=== PATIENT | female | born 1950 | race Caucasian/White ===

== ENCOUNTER 2017-12-13 11:43 | Emergency (ER) | payer OTHER ==
[~2017-12-13 11:43] MED LIST: CARDIZEM CD240 M1 PO; LOSARTAN POTASS50 M1 PO; MAGNESIUM400 M1 PO; OMEGA-31000 M1 PO; OMEPRAZOLE40 M1 PO; PAZEO2.5 ML OU; PRADAXA150 M1 PO
[2017-12-13 13:33] LABS: ABSOLUTE BASOPHIL COUNT 0 /CUMM (0.0-0.2); ABSOLUTE EOSINOPHIL COUNT 0.2 /CUMM (0.0-0.7); ABSOLUTE GRANULOCYTE CT 3.6 /CUMM (1.4-6.5); ABSOLUTE MONOCYTE COUNT 0.3 /CUMM (0.10-0.60); BASOPHIL % 0.4 % (0.0-2.0); GRANULOCYTE % 57.4 % (42.2-75.2); HEMATOCRIT 43.9 % (37-47); MEAN CORPUSCULAR HGB 31.9 PG (27.0-31.0); MEAN CORPUSCULAR VOLUME 93.8 FL (81.0-99.0); MEAN PLATELET VOLUME 7.1 FL (7.4-10.4); PLATELET COUNT 307 /CUMM (130-400); RBC DISTRIBUTION WIDTH 13.7 % (11.5-14.5); RED BLOOD CELL CT 4.69 /CUMM (4.20-5.40); WHITE BLOOD CELL COUNT 6.2 /CUMM (4.8-10.8)
[2017-12-13 13:40] LABS: PT 11.7 SEC (9.4-12.5); PTT 36 SEC (25-37)
--- NOTE | 2017-12-13 14:50 | RADIOLOGY REPORT ---
EXAMINATION: XR CHEST CLINICAL INFORMATION: Hemoptysis. COMPARISON: 10/06/2017, 07/03/2015. TECHNIQUE: 2 views of the chest were obtained. FINDINGS: Stable cardiac and mediastinal silhouette. Stable mild elevation of the right hemidiaphragm. Unchanged appearance of the dense, probably calcified, nodules in bilateral lungs, when compared to 07/03/2015. 1.02 cm nodule in the right mid lung, 0.5 cm nodule left upper, 0.9 cm nodule left lower lung. No evidence of focal consolidation, effusion, edema or pneumothorax. Degenerative changes in the spine. IMPRESSION: No evidence of acute process. Multiple nodules in bilateral lungs, unchanged in size from 07/03/2015, appearance suggesting calcified nodules. No focal consolidation is seen. Etiology of the patient's hemoptysis has not been determined. Further evaluation with CT chest as clinically warranted.
--- NOTE | 2017-12-13 14:57 | ED GENERAL ADULT ---
History of Present Illness General Chief Complaint: General Adult Stated Complaint: SIB DR TOURE BLOODY MOUTH +THINNERS Source: patient, family, old records Exam Limitations: no limitations Vital Signs & Intake/Output Vital Signs & Intake/Output Vital Signs Date Time Temp Pulse Resp B/P B/P Pulse O2 O2 Flow FiO2 Mean Ox Delivery Rate 12/13 1530 98.8 84 18 165/88 97 Room Air Room Air 12/13 1205 99.6 86 20 160/87 95 Room Air Allergies Coded Allergies: Sulfa (Sulfonamide Antibiotics) (RASH, ITCHY EYES 10/06/17) Tetracyclines (RASH 10/06/17) amoxicillin (From AUGMENTIN) (RASH 10/06/17) ciprofloxacin (RASH 10/06/17) clavulanic acid (From AUGMENTIN) (RASH 10/06/17) erythromycin base (RASH 10/06/17) Reconcile Medications Dabigatran Etexilate Mesylate (Pradaxa 150 MG) 150 MG CAPSULE 1 CAP PO BID blood thinner Diltiazem HCl (Cardizem Cd) 240 MG CAP.ER.24H 1 CAP PO DAILY afib Losartan Potassium 50 MG TABLET 1 TAB PO DAILY HEART/BP (Reported) Magnesium Oxide (Magnesium) 400 MG CAPSULE 1 CAP PO DAILY SUPPLEMENT ( Reported) [place]-3 Fatty Acids ([place]-3) (Unknown Strength) CAPSULE 1 TAB PO DAILY SUPPLEMENT (Reported) Omeprazole 40 MG CAPSULE. 1 CAP PO PRN GI (Reported) Core Measure Meds Pre-Hospital Pradaxa Triage Note: SIB DR TOURE FOR BLOODY MOUTH THIS MORNING WHILE AWAKENING. STATES SHE IS ON PRADAXA AND WAS TOLD NOT TO TAKE IT TODAY. NO ACTIVE BLEEDING NOW Triage Nurses Notes Reviewed? yes Onset: Morning Duration: hour(s):, better, gone now Timing: recent history Injury Environment: home Severity: mild, moderate Modifying Factors: Improves With: rest. LMP (ages 10-50): post menopausal : No Patient currently breastfeeds: No HPI: Prior to admission patient awoke with blood in her mouth cheek and on the pillow. She denies fever chills nausea vomiting diarrhea abdominal pain chest pain shortness of breath headache dysuria rash change in bowels. She notes lately she has had lenora taste in the back of her mouth. Past History Travel History Traveled to [place] past 21 day No Medical History Any Pertinent Medical History? see below for history Neurological: NONE EENT: [place] SEASONAL ALLERGIES Cardiovascular: AFIB, hypertension, hyperlipidemia Respiratory: SLEEP APNEA Gastrointestinal: GERD, irritable bowel syndrome, GASTRITIS Hepatic: FATTY LIVER Renal: NONE Musculoskeletal: osteoarthritis Psychiatric: NONE Endocrine: diabetes Blood Disorders: NONE Cancer(s): NONE History of MRSA: No History of VRE: No History of CDIFF: No Influenza Vaccine: 06/18/17 Surgical History Surgical History: non-contributory Psychosocial History What is your primary language Portuguese Tobacco Use: Quit >30 days ago ETOH Use: occasional use Illicit Drug Use: denies illicit drug use Family History Hx Contributory? No Review of Systems Review of Systems Constitutional: Reports: no symptoms. EENTM: Reports: no symptoms. Respiratory: Reports: no symptoms. Cardiovascular: Reports: no symptoms. GI: Reports: see HPI. Genitourinary: Reports: no symptoms. Musculoskeletal: Reports: no symptoms. Skin: Reports: no symptoms. Neurological/Psychological: Reports: no symptoms. Hematologic/Endocrine: Reports: no symptoms. Immunologic/Allergic: Reports: no symptoms. All Other Systems: Reviewed and Negative Physical Exam Physical Exam General Appearance: well developed/nourished, alert, awake, anxious, comfortable , obese Head: atraumatic, normal appearance Eyes: Bilateral: normal appearance, PERRL, EOMI. Ears, Nose, Throat: normal pharynx, normal ENT inspection, hearing grossly normal, moist mucus membranes, no evidence of active bleeding Neck: normal inspection, supple, full range of motion, no midline tenderness Respiratory: normal breath sounds, chest non-tender, no respiratory distress, quiet respiration, lungs clear Cardiovascular: regular rate/rhythm, normal peripheral pulses, norml femoral pulses equa Peripheral Pulses: 4+ carotid (R), 4+ carotid (L) Gastrointestinal: normal bowel sounds, soft, non-tender, no organomegaly Back: normal inspection, normal range of motion Extremities: normal inspection, normal capillary refill, normal range of motion, no edema, no ligament instability Neurologic/Psych: no motor/sensory deficits, awake, alert, oriented x 3, normal gait, normal mood/affect, weight inspector II-XII nml as tested Reflexes: 2+: bicep (R), bicep (L). Skin: intact, normal color, warm/dry Lymphatic: no anterior cervical jair Core Measures ACS in differential dx? No CVA/TIA Diagnosis: No Sepsis Present: No Sepsis Focused Exam Completed? No Progress Differential Diagnoses I considered the following diagnoses in my evaluation of the patient: hemoptysis , GI bleeding, oropharyngeal bleeding Plan of Care: Orders Procedure Date/time Status PARTIAL THROMBOPLASTIN TIME 12/13 1301 Complete PROTHROMBIN TIME 12/13 1301 Complete LIPASE 12/13 1301 Complete COMPREHENSIVE METABOLIC PANEL 12/13 1301 Complete CBC WITHOUT DIFFERENTIAL 12/13 1301 Complete Laboratory Tests 12/13/17 1319: Anion Gap 13, Estimated GFR > 60, BUN/Creatinine Ratio 16.7, Glucose 130 H, Calcium 9.8, Total Bilirubin 0.5, AST 37 H, ALT 57 H, Alkaline Phosphatase 94, Total Protein 7.0, Albumin 4.5, Globulin 2.5, Albumin/Globulin Ratio 1.8, Lipase 82, PT 11.7, INR 1.12, APTT 36, CBC w Diff NO MAN DIFF REQ, RBC 4.69, MCV 93.8, MCH 31.9 H, MCHC 34.0, RDW 13.7, MPV 7.1 L, Gran % 57.4, Lymphocytes % 32.8, Monocytes % 5.4, Eosinophils % 4.0, Basophils % 0.4, Absolute Granulocytes 3.6, Absolute Lymphocytes 2.0, Absolute Monocytes 0.3, Absolute Eosinophils 0.2, Absolute Basophils 0 Diagnostic Imaging: Viewed by Me: Radiology Read. Discussed w/RAD: Radiology Read. CXR Impression: no acute abnormality, no infiltrates Initial ED EKG: none Comments: D/W Marybeth Zuleta Departure Departure Time of Disposition: 0 Disposition: HOME OR SELF CARE Condition: Stable Clinical Impression Primary Impression: Gastritis Qualifiers: Gastritis type: unspecified gastritis Chronicity: acute Gastritis bleeding: with bleeding Qualified Code: K29.01 - Acute gastritis with bleeding Referrals: Ena DOMÍNGUEZ,Carrol (PCP/Family) Sully Toure MD, MD, Jonathan Additional Instructions: Stop pradaxa until evaluated by Dr. Miller. Departure Forms: Customer Survey General Discharge Information Critical Care Note Critical Care Note Critical Care Time: non-applicable
[2017-12-13 15:30] VITALS: BP 165/88
== END 2017-12-13 15:46 ==
LOC: ERH 11:43
PROVIDERS: Emergency Medicine
DX: K29.70 Gastritis, unspecified, without bleeding (principal)
CPT/HCPCS: 71046